=== PATIENT | male | born 1985 | race Hispanic/Latino ===

== ENCOUNTER 2017-08-22 11:36 | Inpatient (IN) | payer SELFPAY ==
[~2017-08-22] VITALS: Ht 170.2 cm; Wt 101.8 kg
[2017-08-22] MEDS ORDERED: MORPHINE SULFATE 4 MG/ML SYR IV STA (11:44)
[2017-08-22] MEDS ORDERED: SODIUM CHLORIDE 0.9% 1000ML 1,000 ML IV STA (11:44)
[2017-08-22] MEDS ORDERED: ONDANSETRON HCL INJ 2 MG/ML VIAL IV STA (11:44)
[2017-08-22] MEDS ORDERED: ACETAMINOPHEN 325 MG TAB PO ONE (11:45)
[2017-08-22] MEDS ORDERED: PIPER-TAZ 3.375 GM 50 ML IV ONE (12:00)
[2017-08-22] MEDS ORDERED: MORPHINE SULFATE 2 MG/ML SYR ONE (12:02)
[2017-08-22 12:14] LABS: BASOPHILS % 0.1 % (0.0-1.0); EOSINOPHILS # (AUTO) 0.1 (0.0-0.4); EOSINOPHILS % 0.7 % (0.0-6.0); HEMATOCRIT 42.5 % (38.2-49.6); HEMOGLOBIN 14.8 g/dL (14.0-18.0); LYMPHOCYTES # (AUTO) 1.1 (1.0-3.2); LYMPHOCYTES % 8.4 % (18.0-39.1); MEAN CORPUSCULAR HEMOGLOBIN 29.2 pg (28-32); MEAN CORPUSCULAR HGB CONC 34.8 g/dL (31-35); MONOCYTES % 7.2 % (4.4-11.3); NEUTROPHILS # (AUTO) 11.1 (2.1-6.9); NEUTROPHILS % 83.1 % (38.7-80.0); PLATELET COUNT 218 x10e3/uL (140-360); RED BLOOD COUNT 5.06 x10e6/uL (4.3-5.7); RED CELL DISTRIBUTION WIDTH 12.5 % (11.7-14.4)
[2017-08-22 12:17] LABS: CLARITY,URINE CLEAR (CLEAR); COLOR,URINE YELLOW (YELLOW); KETONES,URINE NEGATIVE (NEGATIVE); LEUKOCYTE ESTERASE ,URINE NEGATIVE (NEGATIVE); NITRITE,URINE NEGATIVE (NEGATIVE); PROTEIN,URINE DIPSTICK NEGATIVE (NEGATIVE); URINE UROBILINOGEN 0.2 mg/dL (0.2 - 1)
[2017-08-22 12:18] LABS: BILIRUBIN,URINE NEGATIVE (NEGATIVE)
[2017-08-22 12:27] LABS: BACTERIA,URINE FEW /HPF; EPITHELIAL CELLS,URINE FEW /LPF; WBC,URINE (MAN) 0-5 /HPF (0-5)
[2017-08-22 12:29] LABS: RBC,URINE 0-5 /HPF (0-5)
[2017-08-22 12:31] LABS: ALANINE AMINOTRANSFERASE 61 IU/L (0-55); ALBUMIN 4.5 g/dL (3.5-5.0); ALBUMIN/GLOBULIN RATIO 1.4 (0.8-2.0); ALKALINE PHOSPHATASE 56 IU/L (40-150); ANION GAP 15.1 mmol/L (8-16); BLOOD UREA NITROGEN 12 mg/dL (7-26); BUN/CREATININE RATIO 13 (6-25); CALCIUM 9.5 mg/dL (8.4-10.2); CARBON DIOXIDE 24 mmol/L (22-29); CHLORIDE 104 mmol/L (98-107); EST GLOMERULAR FILTRATION RATE > 60 ML/MIN (60-); GLUCOSE 126 mg/dL (74-118); LIPASE 11 U/L (8-78); POTASSIUM 4.1 mmol/L (3.5-5.1); SODIUM 139 mmol/L (136-145)
[2017-08-22] MEDS ORDERED: IOPAMIDOL 370 MG/ML 200 ML INFUS..BTL INJ ONE (12:37)
[2017-08-22] MEDS ORDERED: SODIUM CHLORIDE 0.9% 50ML 50 ML ONE (12:37)
--- NOTE | 2017-08-22 13:16 | Diagnostic Imaging Report ---
EXAM: CT Abdomen and Pelvis WITH contrast INDICATION: Stomach pain. r/o appy COMPARISON: None. TECHNIQUE: Abdomen and pelvis were scanned utilizing a multidetector helical scanner from the lung base to the pubic symphysis after administration of IV contrast. Coronal and sagittal reformations were obtained. Routine protocol was performed. Scan was performed when during portal venous phase. IV CONTRAST: 100 mL of Isovue 370 ORAL CONTRAST: Water COMPLICATIONS: None RADIATION DOSE: Total DLP: 797.84 mGy*cm Estimated effective dose: (DLP x 0.015 x size factor) mSv CTDIvol has been reviewed. It is below the limits set by the Radiation Protocol Committee (RPC). FINDINGS: LINES and TUBES: None. LOWER THORAX: Unremarkable HEPATOBILIARY: No focal hepatic lesions. No biliary ductal dilation. GALLBLADDER: No radio-opaque stones or sludge. No wall thickening. SPLEEN: No splenomegaly. PANCREAS: No focal masses or ductal dilatation. ADRENALS: No adrenal nodules KIDNEYS/URETERS: Kidneys enhance symmetrically. No hydronephrosis. No cystic or solid mass lesions. No stones. GI TRACT: No abnormal distention, wall thickening, or evidence of bowel obstruction. 0.7 cm appendicolith at the base of the appendix. Appendix is dilated up to 1.0 cm. Trace appendiceal fat stranding. PELVIC ORGANS/BLADDER: Unremarkable. LYMPH NODES: No lymphadenopathy. VESSELS: Unremarkable. PERITONEUM / RETROPERITONEUM: Trace free fluid in the pelvis. BONES: Mild disc space narrowing at L5-S1, with a large posterior disc osteophyte. SOFT TISSUES: Unremarkable. IMPRESSION: Findings consistent with acute appendicitis without evidence of perforation. Signed by: Dr. Luis Cordova M.D. on 08/22/2017 1:13 PM
[2017-08-22] MEDS ORDERED: SODIUM CHLORIDE 0.9% 1000ML 1,000 ML IV SCH (13:36)
[2017-08-22] MEDS ORDERED: ONDANSETRON HCL INJ 2 MG/ML VIAL IV PRN ×2 (13:45→21:30)
[2017-08-22] MEDS ORDERED: PIPER-TAZ 3.375 GM / NS 50ML IV SCH (14:00)
[2017-08-22] MEDS: MORPHINE SULFATE 2 MG/ML SYR IV PRN ×2 (14:10→22:25)
[2017-08-22] MEDS ORDERED: IBUPROFEN 600 MG TAB PO STA (14:27)
[2017-08-22 15:42] VITALS: BP 152/66
[2017-08-22 16:21] VITALS: BP 152/66
[2017-08-22] MEDS ORDERED: DEXAMETHASONE SOD PHOS INJ 4 MG/ML VIAL ONE (17:30)
[2017-08-22] MEDS ORDERED: PROPOFOL IV EMULSION 10 MG/ML 20 ML VIAL ONE (17:30)
[2017-08-22] MEDS ORDERED: SEVOFLURANE INHAL SOLN 250 ML PEN BTL ONE (17:30)
[2017-08-22] MEDS ORDERED: LIDOCAINE HCL 2% LOCAL INJ 5 ML SDV VIAL INJ ONE (17:30)
[2017-08-22] MEDS ORDERED: NEOSTIGMINE 5 MG/5ML SYR ONE (17:30)
[2017-08-22] MEDS ORDERED: GLYCOPYRROLATE INJ 1MG/ 5 ML SYR ONE (17:30)
[2017-08-22] MEDS ORDERED: ONDANSETRON HCL INJ 2 MG/ML VIAL ONE (17:30)
[2017-08-22] MEDS ORDERED: ROCURONIUM BROMIDE 10 MG/ML 5ML VIAL ONE (17:30)
[2017-08-22] MEDS ORDERED: MIDAZOLAM HCL 2 MG/2 ML VIAL ONE (17:49)
[2017-08-22] MEDS ORDERED: FENTANYL CITRATE/PF 100MCG/2 ML INJ ONE (17:49)
[2017-08-22] MEDS ORDERED: BUPIVACAINE HCL 0.5% INJ 30 ML VIAL INJ ONE (19:59)
[2017-08-22 20:00] VITALS: BP 152/66
[2017-08-22] MEDS ORDERED: DEXTROSE 5%/0.45% SOD CHL 1,000 ML IV SCH (21:18)
[2017-08-22] MEDS ORDERED: HYDROCODONE/APAP 7.5MG-325MG 1 EA TAB PO PRN (21:30)
[2017-08-22] MEDS ORDERED: MORPHINE SULFATE 5 MG/ML VIAL IV PRN (21:30)
[2017-08-22 22:19] VITALS: BP 108/58
[2017-08-22 22:48] VITALS: BP 108/58
[2017-08-23] VITALS: BP 117/57
[2017-08-23] MEDS: PIPER-TAZ 3.375 GM 50 ML IV SCH ×2 (00:11→05:23)
--- NOTE | 2017-08-23 01:26 | Pre Op History & Physical ---
CHIEF COMPLAINT: Abdominal pain. HISTORY OF PRESENT ILLNESS: Patient is 32-year-old male who presents with complaints of abdominal pain which started yesterday. Pain became localized to right lower quadrant. He had associated nausea and vomiting and he also had some low-grade fever, came in the emergency room where CT of the abdomen was done, which revealed findings suggestive of acute appendicitis. PAST MEDICAL HISTORY: Otherwise unremarkable. He has no chronic medical problems. ALLERGIES: NO KNOWN ALLERGIES. MEDICATIONS: No current medications. PAST SURGICAL HISTORY: No previous surgeries. FAMILY HISTORY: Noncontributory. SOCIAL HISTORY: The patient works in a refinery. He does not smoke cigarettes or drink alcohol. REVIEW OF SYSTEMS: As stated above, otherwise is negative. PHYSICAL EXAMINATION: GENERAL: The patient is awake and alert, in no distress. VITAL SIGNS: Mild tachycardia, heart rate around 100, temperature is 101.2 earlier. Last temperature recorded is 100.9. HEENT: Revealed no scleral icterus. NECK: Has no masses. There is no jugular venous distention. LUNGS: Equal breath sounds are clear bilaterally. CARDIAC: Regular rate and rhythm. Normal S1 and S2 without murmur, S3, S4. ABDOMEN: Tender in right lower quadrant. Signs of peritonitis localized to right lower quadrant. There is no mass, there is no organomegaly. EXTREMITIES: Warm. There is no edema. Pulses are palpable. NEUROLOGIC: Intact. LAB TESTS: The white blood cell count is elevated at 13.4. Hemoglobin and hematocrit are normal. Chemistries are essentially normal. Urinalysis essentially negative. ASSESSMENT: A 32-year-old male with acute appendicitis, now admitted to the hospital. PLAN: Laparoscopic appendectomy. Procedure was explained to the patient including risks, benefits, and alternatives. He understands the procedure. He has had the opportunity to ask questions. He is aware of the possible need for open surgery. Job#: [id number]
[2017-08-23 04:00] VITALS: BP 132/62
--- NOTE | 2017-08-23 07:14 | Operative Report ---
DATE OF PROCEDURE: August 22, 2017 PREOPERATIVE DIAGNOSIS: Acute appendicitis. POSTOPERATIVE DIAGNOSIS: Acute appendicitis. PROCEDURES 1. Diagnostic laparoscopy. 2. Laparoscopic appendectomy. DOCUMENT RESTORER: None. ANESTHESIA: General. INDICATIONS AND FINDINGS: Patient a 32-year-old male who presented with complaints of abdominal pain localized to the right lower quadrant. At surgery, the patient was found to have an acutely inflamed appendix. TECHNIQUE: After adequate general endotracheal anesthesia with the patient in the supine position, the abdomen was prepped and draped in a sterile fashion with Gómez solution. Skin in the umbilicus was infiltrated with 0.5% Marcaine. An incision was made in the umbilicus. Abdominal wall was elevated and Veress needle was introduced. Pneumoperitoneum was then created. A 10-mm trocar and cannula was then passed through the umbilical wound. Laparoscopic camera was introduced. Initial laparoscopy revealed an acutely inflamed appendix with adherent omentum. A 12-mm trocar and cannula was placed suprapubically, and a 5-mm trocar and cannula was placed in the right upper quadrant. These were placed under direct vision. With the cecum elevated, the adherent omentum was bluntly freed from the appendix. A window was created between the base, the appendix and the mesoappendix. The base of the appendix was divided close to the cecum with an endo-ROSALEE stapler. Mesoappendix also divided with an endo-ROSALEE stapler. A small amount of bleeding from the mesoappendix was controlled with Hemoclips. The appendix was placed into an Endopouch and brought out through the suprapubic cannula. Care was taken that it did not touch the abdominal wall. The peritoneal cavity was irrigated with saline. All fluid aspirated and inspected for hemostasis, which was seen to be adequate. It was irrigated once again with saline. All fluid aspirated. Inspected for hemostasis, which was seen to be adequate. Instruments and cannulas were then removed. Pneumoperitoneum was evacuated. Wounds were then closed. Fascia in the umbilical and suprapubic wound closed with 0 Vicryl. Skin to all wounds closed with genia. Sterile dressings applied to each wound. The patient tolerated the procedure well. Estimated blood loss was 15 mL. There were no complications. All counts were correct. Patient was taken to the recovery room in satisfactory condition. Job#: [id number] MAURY
[2017-08-23 07:27] VITALS: BP 137/60
== END 2017-08-23 10:25 | disposition home or self-care (01) | DRG 340 ==
LOC: ER 11:36 → ERHOLD 14:15 → MED/SURG 14:49
PROVIDERS: ADMIT Surgery; ATTEND Surgery
PROC: 0DTJ4ZZ Resection of Appendix, Percutaneous Endoscopic Approach (ICD-10-PCS; principal; 2017-08-22 20:30)
DX: K35.2 Acute appendicitis with generalized peritonitis (principal)
CPT/HCPCS: 36415; 74177; 80053; 81001; 83690; 85025; 87086; 88304; 99284; J1100; J2001; J2250; J2270; J2405; J2543; J7030; Q9967